=== PATIENT | female | born 1970 | race Caucasian/White ===

== ENCOUNTER 2020-09-28 13:42 | Emergency (ER) | payer OTHER, SELFPAY ==
--- NOTE | ~2020-09-28 | XR_ITS ---
EXAMINATION: XR foot LT min 3V DATE: 09/28/2020 14:17 INDICATION: Left-sided pain and swelling. TECHNIQUE: 4 views of left foot were obtained. COMPARISON: None. FINDINGS: Pes planus is noted. There are changes of arthrodesis procedure of first tarsometatarsal jeny int with plate and screws. There are changes of arthrodesis procedure involving the cuboid, intermedi ate and lateral cuneiforms, and calcaneus with plate and screws. The screw in calcaneus is broken. Th ere is a plate with 2 screws in calcaneus. There is mild hallux valgus. No acute fracture. There is m ild osteoarthritis of first metatarsophalangeal joint and some of the midfoot joints. There is modera te osteoarthritis of calcaneocuboid joint. There is an enthesophyte at plantar aspect of calcaneal tu berosity. IMPRESSION: 1. Polyarticular osteoarthritis. 2. Pes planus. 3. Mild hallux valgus. 4. Arthrodesis procedure of first tarsometatarsal joint. 5. Arthrodesis procedure involving calcaneus, cuboid, and lateral and intermediate cuneiforms with fr acture of the calcaneal screw. Reviewed, dictated and finalized at location A. IMPRESSION: 1. Polyarticular osteoarthritis. 2. Pes planus. 3. Mild hallux valgus. 4. Arthrodesis procedure of first tarsometatarsal joint. 5. Arthrodesis procedure involving calcaneus, cuboid, and lateral and intermedi ate cuneiforms with fracture of the calcaneal screw.
[2020-09-28 13:50] VITALS: BP 130/78; PULSE 92; RESP 18; TEMP 36.8; O2SAT 97
[2020-09-28 13:58] VITALS: BP 130/78; PULSE 92; RESP 18; TEMP 36.8; O2SAT 97
--- NOTE | 2020-09-28 14:08 | ED.LOWEXIN ---
HPI - Extremity Injury (Lower) General Chief Complaint: Extremity Injury, Lower Stated Complaint: lt foot pain/leg pain & swelling Source: patient and RN notes reviewed Limitations: no limitations History of Present Illness HPI Narrative: The obese patient, on several meds including for AODM, presents with foot pain. The morbid patient indicates that she has had bilateral foot surgery/ORIF for pronation and severe acquired pes planus, about 5 years ago. She now complains of couple week history of left foot pain that is worse with motion, better at rest, located medially along the first metatarsal and extensor tendons, where she had the ORIF . Pain and tenderness seem actually at the hardware site, which seems slightly elevated ;symptoms only slightly improved with OTC orthotics, new shoes. Patient advised to follow-up with prior foot surgeons, and to splint/decrease ROM of affected toe by fani taping or flat shoe. Related Data Home Medications Medication Instructions Recorded Confirmed aripiprazole mg 09/28/20 atorvastatin 09/28/20 bupropion HCl PO 09/28/20 duloxetine mg PO 09/28/20 gabapentin 09/28/20 hydrochlorothiazide 09/28/20 meloxicam 09/28/20 metformin mg PO 09/28/20 metoprolol tartrate 09/28/20 trazodone 09/28/20 Allergies Allergy/AdvReac Type Severity Reaction Status Date / Time azithromycin Allergy Mild Unknown Unverified 09/28/20 13:56 lisinopril Allergy Swelling Verified 09/28/20 13:56 of Lip/Tongue/Throat Review of Systems Review of Systems: Narrative: General/Constitutional: No weight loss,fever Eyes: N0: Redness,discharge Ears/Nose/Throat: No: Epistaxis,ear discharge Respiratory: Denies: Hemoptysis Gastrointestinal: No Vomiting, Bleeding-rectal Skin: No Lumps, eruption Neurologic: No Focal Weakness,Sz Hematologic: Denies: Petechiae/Purpura Psychiatric: No: Suicida ideationl All Other Systems: Reviewed and Negative PMFSH Comments At time of signature, agree with nursing past medical, surgical, social and family history. There is no relevant family history pertinent to the presenting complaint Exam Narrative: Exam Narrative: General Appearance: Well appearing, Well nourished, No distress EYE: PERRLA, EOMI, Conjunctiva clear Ears: External ear normal, Auditory canal normal Nose: Normal nose, Nares clear Mouth/Throat: Normal appearing, Normal lips Neck: Supple Respiratory: Airway patent, No respiratory distress MS-foot: Normal strength (mostly intact, limited flexion/extension by pain), Tenderness (extensor tendon great toe, with mild decreased ROM), scant swelling (great toe extensor tendon at the distal DIPJ, and midshaft metatarsal), Other (+/- anterior drawer, +/- collateral laxity, no Achilles tenderness, no fifth MT tenderness) Skin: Warm, Dry, Normal color Neurological: A&O x3, Speech clear, CN II-XII intact Psychiatric: Normal mood, Normal affect Course Course Emergency Course: Films visualized, interpreted by radiologist, agree, ABnormal see report Vital Signs Vital signs: Vital Signs Temperature 98.3 F 09/28/20 13:50 Pulse Rate 92 09/28/20 13:50 Respiratory Rate 18 09/28/20 13:50 Blood Pressure 130/78 09/28/20 13:50 Pulse Oximetry 97 09/28/20 13:50 Temperature 98.3 F 09/28/20 13:58 Pulse Rate 92 09/28/20 13:58 Respiratory Rate 18 09/28/20 13:58 Blood Pressure 130/78 09/28/20 13:58 Pulse Oximetry 97 09/28/20 13:58 Discharge Plan Discharge Clinical Impression: Arthropathy of left foot, Post-op pain Patient Disposition: Home, Self-Care Condition: Stable Instructions: Tendinitis (ED) Prescriptions: New prednisone 20 mg tablet 60 mg PO DAILY Qty: 9 RF: 0 acetaminophen-codeine 120-12 mg/5 mL solution 7.5 ml PO Q8H Qty: 118 RF: 0 cephalexin 500 mg capsule 1,000 mg PO Q12H 7 Days Qty: 28 RF: 0 No Action bupropion HCl 150 mg tablet sustained-release 12 hr
== END 2020-09-28 14:40 | disposition home or self-care (01) ==
PROVIDERS: Emergency Provider Emergency Medicine; PCP Family Medicine
DX: M19.072 Primary osteoarthritis, left ankle and foot (principal); G89.18 Other acute postprocedural pain; E78.00 Pure hypercholesterolemia, unspecified; I10 Essential (primary) hypertension; K21.9 Gastro-esophageal reflux disease without esophagitis; E11.9 Type 2 diabetes mellitus without complications
CPT/HCPCS: 73630; 99203; G0463